=== PATIENT | male | born 1975 | race Caucasian/White ===

== ENCOUNTER 2019-09-13 11:18 | Emergency (ER) | payer OTHER ==
[~2019-09-13] VITALS: Ht 177.8 cm; Wt 94.3 kg
[2019-09-13 11:33] VITALS: BP 134/77
--- NOTE | 2019-09-13 11:36 | NUR ---
C/O FEVER, COUGH ,BODY ACHE X 3 DAYS, DIARRHEA 1 EPISODE X TODAY. MED HX;DENIES COVID SWAB DONE.
[2019-09-13 12:47] VITALS: BP 134/77
--- NOTE | 2019-09-13 12:47 | NUR ---
Patient discharged with v/s stable. Written and verbal after care instructions given and explained. Patient verbalized understanding. Ambulatory with steady gait. All questions addressed prior to discharge. Advised to follow up with PMD.
== END 2019-09-13 12:47 | disposition home or self-care (01) ==
LOC: MED 11:18
DX: R50.9 Fever, unspecified (principal); Z20.828 Contact with and (suspected) exposure to other viral communicable diseases; R05 Cough; M79.10 Myalgia, unspecified site; R19.7 Diarrhea, unspecified
CPT/HCPCS: 99283; U0003